=== PATIENT | male | born 1985 | race African-American/Black ===

== ENCOUNTER 2018-10-21 13:51 | Emergency (ER) | payer SELFPAY ==
[~2018-10-21] VITALS: Ht 175.3 cm; Wt 72.7 kg
[2018-10-21 14:28] LABS: EOS % 0.1 % (0.0-4.0); HEMATOCRIT 51.9 % (42.0-52.0); HEMOGLOBIN 18.7 g/dL (13.5-18.0); LYMPH# 2.2 (1.50-4.00); MEAN CELL VOLUME 82 fl (78-100); MEAN CORPUSCULAR HEMOGLOBIN 30 pg (27-31); MEAN CORPUSCULAR HGB CONC 36 g/dL (33-37); MEAN PLATELET VOLUME 9.6 fl (7.4-10.4); MONO # 1.5 (0.20-0.80); NEU # 8.5 (1.40-6.50); PLATELET COUNT 334 K/mm3 (130-400); RED BLOOD COUNT 6.33 M/mm3 (4.20-5.60); RED CELL DISTRIBUTION WIDTH 16.1 % (11.5-14.5); WHITE BLOOD COUNT 12.2 K/mm3 (4.8-10.8)
[2018-10-21 14:38] LABS: ALBUMIN 4.6 g/dL (3.5-5.0); POTASSIUM 3.3 mmol/L (3.5-5.1); SODIUM 139 mmol/L (136-145)
[2018-10-21 14:39] LABS: CALCIUM 10.6 mg/dL (8.3-10.5)
[2018-10-21 14:41] LABS: GLUCOSE 100 mg/dL (75-110); TOTAL PROTEIN 8.5 g/dL (6.4-8.3)
[2018-10-21 14:42] LABS: CARBON DIOXIDE 27 mmol/L (22-29)
[2018-10-21 14:46] LABS: AST-SGOT 30 U/L (5-34)
[2018-10-21 14:47] LABS: ALT/SGPT 17 U/L (0-55)
[2018-10-21 14:48] LABS: LIPASE 30 U/L (8-78)
[2018-10-21 15:15] LABS: URINE APPEARANCE HAZY; URINE COLOR YELLOW
[2018-10-21 15:16] LABS: URINE BILIRUBIN 1+ (NEGATIVE); URINE BLOOD NEGATIVE (NEGATIVE); URINE GLUCOSE NEGATIVE (NEGATIVE); URINE KETONE NEGATIVE (NEGATIVE); URINE LEUKOCYTE ESTERASE NEGATIVE (NEGATIVE); URINE NITRATE NEGATIVE (NEGATIVE); URINE PROTEIN(semi-quant) 1+ mg/dL (NEGATIVE); URINE UROBILINOGEN NORMAL (NORMAL)
[2018-10-21 15:17] LABS: URINE MUCUS PRESENT (NOT PRESENT)
[2018-10-21 15:53] LABS: ALCOHOL IN-HOUSE < 10 mg/dL (<10)
[2018-10-21] MEDS ORDERED: ZOFRAN ODT4 MG PO (16:16)
[2018-10-21 16:24] VITALS: BP 162/93
== END 2018-10-21 16:25 | disposition home or self-care (01) ==
LOC: ED 13:51
PROVIDERS: Physician Assistant
DX: E87.6 Hypokalemia (principal); E86.0 Dehydration; D57.1 Sickle-cell disease without crisis; F17.210 Nicotine dependence, cigarettes, uncomplicated; F12.10 Cannabis abuse, uncomplicated
CPT/HCPCS: J2405; J7030